=== PATIENT | male | born 1970 | race Caucasian/White ===

== ENCOUNTER 2018-01-10 01:51 | Emergency (ER) | payer BC, OTHER ==
[~2018-01-10] VITALS: Ht 160 cm; Wt 100.0 kg
[2018-01-10 01:59] VITALS: BP 165/117; PULSE 89; RESP 18; TEMP 98.6; O2SAT 99
--- NOTE | 2018-01-10 02:13 | PD ---
HPI Chief Complaint: Alcohol/Drug Intoxication Time Seen by Provider: 02:08 Travel History International Travel<30 days: No Contact w/Intl Traveler<30days: No Traveled to known affect area: No History of Present Illness HPI 47-year-old white male presents emergency department under [place] act by PD. Patient had been pulled over for a DUI. During [facility] the [facility] the patient had made suicidal statements. He had stated that he had thought about killing himself. He had also stated that he might not kill himself today but may be in a few days. He also had stated maybe he would kill him himself as well as his family because he was embarrassed regarding his DUI.. The patient states that he truly is not suicidal or homicidal. He states that he was merely embarrassed and he is intoxicated. He denies any medical complaints. He admits to drinking alcohol earlier. He does dip and chew nicotine gum. He denies any drugs. PFSH Past Medical History Narrative Medical Anxiety, depression, GERD, gout Hx Anticoagulant Therapy: No Cardiovascular Problems: Yes Chemotherapy: No Cerebrovascular Accident: No Diabetes: No Respiratory: No Tetanus Vaccination: < 5 Years ?: Not Past Surgical History Narrative Surgical Left knee arthroscopy, dental extraction Hysterectomy: No Social History Alcohol Use: Yes Tobacco Use: Yes Substance Use: No Allergies-Medications (Allergen,Severity, Reaction): Coded Allergies: No Known Allergies (Unverified , 01/10/18) Reported Meds & Prescriptions Reported Meds & Active Scripts Active Reported Nexium (Esomeprazole DR) 40 Mg Capdr 40 Mg PO DAILY Allopurinol 300 Mg Tab 300 Mg PO DAILY Wellbutrin Xl 24 HR (Bupropion HCl) 300 Mg Tab 300 Mg PO DAILY Review of Systems General / Constitutional: No: Fever Eyes: No: Visual changes HENT: No: Headaches Cardiovascular: No: Chest Pain or Discomfort Respiratory: No: Shortness of Breath Gastrointestinal: No: Abdominal Pain Genitourinary: No: Dysuria Musculoskeletal: No: Pain Skin: No Rash Neurologic: No: Weakness Psychiatric: Positive: Depression, Suicidal Ideations, Mood Disorder, Substance Abuse, Homicidal Ideation, No: Anxiety, Disorder of Thought Endocrine: No: Polydipsia Hematologic/Lymphatic: No: Easy Bruising Physical Exam Narrative GENERAL: Well-nourished, well-developed patient. Appears intoxicated. SKIN: Warm and dry. HEAD: Normocephalic and atraumatic. EYES: No scleral icterus. No injection or drainage. ENT: No nasal drainage noted. Mucous membranes pink. Airway patent. NECK: Supple, trachea midline. Moves head freely without obvious discomfort. CARDIOVASCULAR: Regular rate and rhythm without murmurs, gallops, or rubs. RESPIRATORY: Breath sounds equal bilaterally. No accessory muscle use. GASTROINTESTINAL: Abdomen soft, non-tender, nondistended. EXTREMITIES: No cyanosis or edema. BACK: Nontender without obvious deformity. No CVA tenderness. NEURO: Patient is alert and oriented. no sensorimotor deficits. Nonfocal. Somewhat slurred speech. PSYCH: No delusions. No auditory or visual hallucinations. Data Data Last Documented VS Vital Signs Date Time Temp Pulse Resp B/P (MAP) Pulse Ox O2 Delivery O2 Flow Rate FiO2 01/10/18 01:59 98.6 89 18 165/117 (133) 99 Orders Orders Complete Blood Count With Diff (01/10/18 02:09) Comprehensive Metabolic Panel (01/10/18 02:09) Thyroid Stimulating Hormone (01/10/18 02:09) Psych Screen (01/10/18 02:09) Drug Screen, Random Urine (01/10/18 02:09) Alcohol (Ethanol) (01/10/18 02:09) Diet Regular Basic (01/10/18 Breakfast) Labs Laboratory Tests Test 01/10/18 02:30 White Blood Count 8.0 TH/MM3 Red Blood Count 5.35 MIL/MM3 Hemoglobin 18.1 GM/DL Hematocrit 51.0 % Mean Corpuscular Volume 95.5 FL Mean Corpuscular Hemoglobin 33.9 PG Mean Corpuscular Hemoglobin Concent 35.5 % Red Cell Distribution Width 13.7 % Platelet Count 256 TH/MM3 Mean Platelet Volume 7.9 FL Neutrophils (%) (Auto) 49.2 % Lymphocytes (%) (Auto) 41.1 % Monocytes (%) (Auto) 7.1 % Eosinophils (%) (Auto) 1.3 % Basophils (%) (Auto) 1.3 % Neutrophils # (Auto) 3.9 TH/MM3 Lymphocytes # (Auto) 3.3 TH/MM3 Monocytes # (Auto) 0.6 TH/MM3 Eosinophils # (Auto) 0.1 TH/MM3 Basophils # (Auto) 0.1 TH/MM3 CBC Comment DIFF FINAL Differential Comment Blood Urea Nitrogen 8 MG/DL Creatinine 0.93 MG/DL Random Glucose 103 MG/DL Total Protein 8.2 GM/DL Albumin 4.4 GM/DL Calcium Level 8.2 MG/DL Alkaline Phosphatase 82 U/L Aspartate Amino Transf (AST/SGOT) 98 U/L Alanine Aminotransferase (ALT/SGPT) 145 U/L Total Bilirubin 0.5 MG/DL Sodium Level 144 MEQ/L Potassium Level 3.6 MEQ/L Chloride Level 108 MEQ/L Carbon Dioxide Level 21.9 MEQ/L Anion Gap 14 MEQ/L Estimat Glomerular Filtration Rate 87 ML/MIN Thyroid Stimulating Hormone 3rd Gen 1.140 uIU/ML Urine Opiates Screen NEG Urine Barbiturates Screen NEG Urine Amphetamines Screen NEG Urine Benzodiazepines Screen NEG Urine Cocaine Screen NEG Urine Cannabinoids Screen NEG Ethyl Alcohol Level 282 MG/DL MDM Medical Decision Making Medical Screen Exam Complete: Yes Emergency Medical Condition: Yes Medical Record Reviewed: Yes Interpretation(s) Laboratory Tests Test 01/10/18 02:30 White Blood Count 8.0 TH/MM3 Red Blood Count 5.35 MIL/MM3 Hemoglobin 18.1 GM/DL Hematocrit 51.0 % Mean Corpuscular Volume 95.5 FL Mean Corpuscular Hemoglobin 33.9 PG Mean Corpuscular Hemoglobin Concent 35.5 % Red Cell Distribution Width 13.7 % Platelet Count 256 TH/MM3 Mean Platelet Volume 7.9 FL Neutrophils (%) (Auto) 49.2 % Lymphocytes (%) (Auto) 41.1 % Monocytes (%) (Auto) 7.1 % Eosinophils (%) (Auto) 1.3 % Basophils (%) (Auto) 1.3 % Neutrophils # (Auto) 3.9 TH/MM3 Lymphocytes # (Auto) 3.3 TH/MM3 Monocytes # (Auto) 0.6 TH/MM3 Eosinophils # (Auto) 0.1 TH/MM3 Basophils # (Auto) 0.1 TH/MM3 CBC Comment DIFF FINAL Differential Comment Blood Urea Nitrogen 8 MG/DL Creatinine 0.93 MG/DL Random Glucose 103 MG/DL Total Protein 8.2 GM/DL Albumin 4.4 GM/DL Calcium Level 8.2 MG/DL Alkaline Phosphatase 82 U/L Aspartate Amino Transf (AST/SGOT) 98 U/L Alanine Aminotransferase (ALT/SGPT) 145 U/L Total Bilirubin 0.5 MG/DL Sodium Level 144 MEQ/L Potassium Level 3.6 MEQ/L Chloride Level 108 MEQ/L Carbon Dioxide Level 21.9 MEQ/L Anion Gap 14 MEQ/L Estimat Glomerular Filtration Rate 87 ML/MIN Thyroid Stimulating Hormone 3rd Gen 1.140 uIU/ML Urine Opiates Screen NEG Urine Barbiturates Screen NEG Urine Amphetamines Screen NEG Urine Benzodiazepines Screen NEG Urine Cocaine Screen NEG Urine Cannabinoids Screen NEG Ethyl Alcohol Level 282 MG/DL Differential Diagnosis MDM: High Differential diagnoses: Schizophrenia, schizoaffective disorder, bipolar, anxiety, depression, adjustment reaction, mood disorder NOS, ODD, depressive disorder NOS, psychosis NOS, substance induced mood disorder, infection, electrolyte abnormality, malingering. Narrative Course Mental health screening discussed with the patient. Psychiatric screen ordered. The patient has been medically cleared. This medical clearance for psychiatric admission Diagnosis Primary Impression: Medical clearance for psychiatric admission Condition: Stable Jerel Beach Jan 10, 2018 02:13
[2018-01-10] MEDS ORDERED: WELLTAB39 PO (02:46)
[2018-01-10] MEDS ORDERED: ALLO300T2 PO (02:46)
[2018-01-10] MEDS ORDERED: NEXI40CA PO (02:46)
[2018-01-10 03:06] LABS: AUTOMATED NEUTROPHIL # 3.9 TH/MM3 (1.8-7.7); BASOPHIL # 0.1 TH/MM3 (0-0.2); BASOPHIL % 1.3 % (0.0-2.0); EOSINOPHIL # 0.1 TH/MM3 (0-0.4); EOSINOPHIL % 1.3 % (0.0-4.0); HEMOGLOBIN 18.1 GM/DL (13.0-17.0); LYMPH % 41.1 % (9.0-44.0); LYMPHOCYTE # 3.3 TH/MM3 (1.0-4.8); MEAN CELL VOLUME 95.5 FL (80.0-100.0); MEAN CORPUSCULAR HEMOGLOBIN 33.9 PG (27.0-34.0); MEAN CORPUSCULAR HGB CONC 35.5 % (32.0-36.0); MEAN PLATELET VOLUME 7.9 FL (7.0-11.0); MONO % 7.1 % (0.0-8.0); MONOCYTE # 0.6 TH/MM3 (0-0.9); NEUT % 49.2 % (16.0-70.0); PLATELET COUNT 256 TH/MM3 (150-450); RED BLOOD COUNT 5.35 MIL/MM3 (4.50-5.90); RED CELL DISTRIBUTION WIDTH 13.7 % (11.6-17.2)
[2018-01-10 03:17] LABS: ALBUMIN 4.4 GM/DL (3.4-5.0); ALT (GPT) 145 U/L (12-78); AST (GOT) 98 U/L (15-37); BICARBONATE 21.9 MEQ/L (21.0-32.0); BLOOD UREA NITROGEN 8 MG/DL (7-18); CALCIUM 8.2 MG/DL (8.5-10.1); CHLORIDE 108 MEQ/L (98-107); CREATININE 0.93 MG/DL (0.60-1.30); GLOMERULAR FILTRATION RATE 87 ML/MIN (>89); GLUCOSE,RANDOM 103 MG/DL (74-106); SODIUM (NA) 144 MEQ/L (136-145)
[2018-01-10 03:27] LABS: ALKALINE PHOSPHATASE 82 U/L (45-117); TOTAL BILIRUBIN ADULT 0.5 MG/DL (0.2-1.0); TOTAL PROTEIN 8.2 GM/DL (6.4-8.2)
[2018-01-10 04:33] VITALS: BP 136/72; PULSE 85; RESP 18; O2SAT 98
[2018-01-10 10:04] VITALS: BP 161/105; PULSE 85; RESP 18; O2SAT 100; O2SAT 18
--- NOTE | 2018-01-10 11:02 | PD ---
Physical Exam Date Seen by Provider: Jan 10, 2018 Time Seen by Provider: 11:00 Narrative 47-year-old male previously medically clear for psychiatric evaluation under the Moses act, has been seen by psychiatric staff, and deemed to be psychiatrically stable for discharge at this time. Patient remains medically stable for discharge. Patient is recommended to follow-up with T[facility] Gamboa for his alcohol use. Data Data Last Documented VS Vital Signs Date Time Temp Pulse Resp B/P (MAP) Pulse Ox O2 Delivery O2 Flow Rate FiO2 01/10/18 10:52 01/10/18 10:04 85 18 100 Room Air 01/10/18 01:59 98.6 Orders Orders Complete Blood Count With Diff (01/10/18 02:09) Comprehensive Metabolic Panel (01/10/18 02:09) Thyroid Stimulating Hormone (01/10/18 02:09) Psych Screen (01/10/18 02:09) Drug Screen, Random Urine (01/10/18 02:09) Alcohol (Ethanol) (01/10/18 02:09) Diet Regular Basic (01/10/18 Breakfast) Diet Regular Basic (01/10/18 Lunch) Labs Laboratory Tests Test 01/10/18 02:30 White Blood Count 8.0 TH/MM3 Red Blood Count 5.35 MIL/MM3 Hemoglobin 18.1 GM/DL Hematocrit 51.0 % Mean Corpuscular Volume 95.5 FL Mean Corpuscular Hemoglobin 33.9 PG Mean Corpuscular Hemoglobin Concent 35.5 % Red Cell Distribution Width 13.7 % Platelet Count 256 TH/MM3 Mean Platelet Volume 7.9 FL Neutrophils (%) (Auto) 49.2 % Lymphocytes (%) (Auto) 41.1 % Monocytes (%) (Auto) 7.1 % Eosinophils (%) (Auto) 1.3 % Basophils (%) (Auto) 1.3 % Neutrophils # (Auto) 3.9 TH/MM3 Lymphocytes # (Auto) 3.3 TH/MM3 Monocytes # (Auto) 0.6 TH/MM3 Eosinophils # (Auto) 0.1 TH/MM3 Basophils # (Auto) 0.1 TH/MM3 CBC Comment DIFF FINAL Differential Comment Blood Urea Nitrogen 8 MG/DL Creatinine 0.93 MG/DL Random Glucose 103 MG/DL Total Protein 8.2 GM/DL Albumin 4.4 GM/DL Calcium Level 8.2 MG/DL Alkaline Phosphatase 82 U/L Aspartate Amino Transf (AST/SGOT) 98 U/L Alanine Aminotransferase (ALT/SGPT) 145 U/L Total Bilirubin 0.5 MG/DL Sodium Level 144 MEQ/L Potassium Level 3.6 MEQ/L Chloride Level 108 MEQ/L Carbon Dioxide Level 21.9 MEQ/L Anion Gap 14 MEQ/L Estimat Glomerular Filtration Rate 87 ML/MIN Thyroid Stimulating Hormone 3rd Gen 1.140 uIU/ML Urine Opiates Screen NEG Urine Barbiturates Screen NEG Urine Amphetamines Screen NEG Urine Benzodiazepines Screen NEG Urine Cocaine Screen NEG Urine Cannabinoids Screen NEG Ethyl Alcohol Level 282 MG/DL [facility] Medical Record Reviewed: Yes Supervised Visit with JOAQUIN: Yes Narrative Course 47-year-old male previously medically clear for psychiatric evaluation under the [place] act, has been seen by psychiatric staff, and deemed to be psychiatrically stable for discharge at this time. Patient remains medically stable for discharge. Patient is recommended to follow-up with Tomas Gamboa for his alcohol use. Diagnosis Primary Impression: Medical clearance for psychiatric admission Additional Impression: Alcohol abuse Referrals: [facility] Patient Instructions: General Instructions Med/Other Pt SpecificInfo: No Meds Exist/No RX given Disposition: 01 DISCHARGE HOME Condition: Stable Tal Harris Jan 10, 2018 11:02
--- NOTE | 2018-01-10 11:15 | PD ---
History of Present Illness Chief Complaint: Alcohol/Drug Intoxication Time Seen by Provider: 10:40 Travel History International Travel<30 Days: No Contact w/Intl Traveler<30days: No Known affected area: No Legal Status Legal Status: Moses Act Moses Act Signed By: DELL ALAMO [facility] OFFICE Moses Act Comment: OFFICER Dick ROMAN 156 History of Present Illness: History of Present Illness HPI 47-year-old white, male with history of alcohol use disorder who presents to emergency department under [place] act by PD. Patient had been at a baseball tournament with his children. He had consumed alcohol and decided to drive back to [place] where he lives and was pulled over for a DUI. The Moses act report alleges that while he was being process at the group home he made multiple statements about killing himself. The report also alleges that he stated that he did not know if he would just kill himself or kill his children and himself due to the fact that he does not want them to know that he has been arrested. He did not make any attempt to harm himself. The patient's blood alcohol level on arrival to the ED was 282. Patient was monitored in secure environment and he presented no behavioral concerns and no suicidality. EMR is reviewed. No previous contact with [facility]. Patient is seen in [facility]. He is clinically sober. No evidence of any withdrawal symptoms. He is engaging and cooperative. His speech is clear and logical. There is no significant objective clinical symptoms of depression or anxiety. No evidence of unstable mental illness. He denies any suicidal or homicidal ideation, intent or plan. He states" I was drunk and got pulled over. I made a sarcastic statement and they took me literally. I feel stupid now." Patient admits that he did make a statement that he would rather kill himself than for his children to find out that he was arrested. He denies that this was an actual suicidal statement. The patient has no previous suicidal attempts. No previous psychiatric history. The remainder of the psychiatric review of systems is negative. PFSH Past Medical History Hx Anticoagulant Therapy: No Depression: Yes Cardiovascular Problems: Yes Chemotherapy: No Cerebrovascular Accident: No Diabetes: No Patient Takes Glucophage: No Diminished Hearing: No Hypertension: Yes Respiratory: No Tetanus Vaccination: < 5 Years ?: Not Past Surgical History Hysterectomy: No Psychiatric History Psychiatric History Hx Psychiatric Treatment: No previous psychiatric history. No history of suicide attempt. 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 This in [place]. Has 2 boys ages 16-1/2 and 13 years old. He shares custody of these children. He works for [employer]. Hx Alcohol Use: Yes (Long history of alcohol abuse. Has had extended periods of sobriety in the past. He relapsed approximately 2-1/2 months ago. He has used AA) Hx Tobacco Use: Yes Hx Substance Use: Yes Substance Use Type: Alcohol Other Substances Used: ETOH AA IN PAST Hx of Substance Use Treatment: Yes Family Psychiatric History Negative Allergies-Medications (Allergen,Severity, Reaction): Coded Allergies: No Known Allergies (Unverified , 01/10/18) Reported Meds & Prescriptions Reported Meds & Active Scripts Active Reported Nexium (Esomeprazole DR) 40 Mg Capdr 40 Mg PO DAILY Allopurinol 300 Mg Tab 300 Mg PO DAILY Wellbutrin Xl 24 HR (Bupropion HCl) 300 Mg Tab 300 Mg PO DAILY Review of Systems Psychiatric: COMPLAINS OF: Anxiety, Confusion, Mood changes, Depression, Hallucinations, Agitation, Suicidal Ideation, Homicidal Ideation, Delusions Except as stated in HPI: all other systems reviewed are Neg Mental Status Examination Appearance: Disheveled (In paper scrubs) Consciousness: Alert Motor Activity: Normal gait Speech: Unremarkable Language: Adequate Fund of Knowledge: Adequate Attention and Concentration: Adequate Memory: Unremarkable Mood: Appropriate Affect: Appropriate Thought Process & Associations: Intact, Logical, Goal directed Thought Content: Appropriate Hallucination Type: None Delusion Type: None Suicidal Ideation: No Suicidal Plan: No Suicidal Intention: No Homicidal Ideation: No Homicidal Plan: No Homicidal Intention: No Insight: Adequate Judgment: Adequate [facility] Medical Decision Making Medical Record Reviewed: Yes Assessment/Plan 47-year-old male with no previous psychiatric history, history of alcohol use disorder who in context of acute alcohol intoxication was pulled over for a DUI. While being processed by the police he it is alleged that he made statements that he might as well just kill himself due to his embarrassment. The patient wants clinically sober denies that he had any intention of wanting to harm himself or harming anyone else. He states that it was a stupid and sarcastic statement and that he was taken seriously. The patient is future oriented and states " he has a lot of stuff that he needs to do" and "that he needs to be a better father for his children". The patient acknowledges that his alcohol intoxication led to his statements. He has utilized to AA program before and feels that he needs to go back to that program again. I find no evidence of any unstable mental illness as defined under the Moses act law. The patient is future oriented. I will lift the Moses act. I have counseled the patient on abstinence and importance of following up with AA. BA is lifted. Psychiatrically clear for discharge from the ED. Orders Orders Complete Blood Count With Diff (01/10/18 02:09) Comprehensive Metabolic Panel (01/10/18 02:09) Thyroid Stimulating Hormone (01/10/18 02:09) Psych Screen (01/10/18 02:09) Drug Screen, Random Urine (01/10/18 02:09) Alcohol (Ethanol) (01/10/18 02:09) Diet Regular Basic (01/10/18 Breakfast) Diet Regular Basic (01/10/18 Lunch) Ed Discharge Order (01/10/18 11:03) Results Vital Signs Date Time Temp Pulse Resp B/P (MAP) Pulse Ox O2 Delivery O2 Flow Rate FiO2 01/10/18 10:52 01/10/18 10:04 85 18 161/105 (123) 100 Room Air 01/10/18 04:33 85 18 136/72 (93) 98 Room Air 01/10/18 01:59 98.6 89 18 165/117 (133) 99 Laboratory Tests Test 01/10/18 02:30 White Blood Count 8.0 Red Blood Count 5.35 Hemoglobin 18.1 Hematocrit 51.0 Mean Corpuscular Volume 95.5 Mean Corpuscular Hemoglobin 33.9 Mean Corpuscular Hemoglobin Concent 35.5 Red Cell Distribution Width 13.7 Platelet Count 256 Mean Platelet Volume 7.9 Neutrophils (%) (Auto) 49.2 Lymphocytes (%) (Auto) 41.1 Monocytes (%) (Auto) 7.1 Eosinophils (%) (Auto) 1.3 Basophils (%) (Auto) 1.3 Neutrophils # (Auto) 3.9 Lymphocytes # (Auto) 3.3 Monocytes # (Auto) 0.6 Eosinophils # (Auto) 0.1 Basophils # (Auto) 0.1 CBC Comment DIFF FINAL Differential Comment Blood Urea Nitrogen 8 Creatinine 0.93 Random Glucose 103 Total Protein 8.2 Albumin 4.4 Calcium Level 8.2 Alkaline Phosphatase 82 Aspartate Amino Transf (AST/SGOT) 98 Alanine Aminotransferase (ALT/SGPT) 145 Total Bilirubin 0.5 Sodium Level 144 Potassium Level 3.6 Chloride Level 108 Carbon Dioxide Level 21.9 Anion Gap 14 Estimat Glomerular Filtration Rate 87 Thyroid Stimulating Hormone 3rd Gen 1.140 Urine Opiates Screen NEG Urine Barbiturates Screen NEG Urine Amphetamines Screen NEG Urine Benzodiazepines Screen NEG Urine Cocaine Screen NEG Urine Cannabinoids Screen NEG Ethyl Alcohol Level 282 Diagnosis Primary Impression: alcohol abuse with intoxication Psychiatrically Cleared: Yes Referrals: [facility] Patient Instructions: General Instructions Med/ Other Pt Specific Info: No Meds Exist/No RX given Disposition: 01 DISCHARGE HOME Condition: Stable SchultzChristine Jan 10, 2018 11:15
== END 2018-01-10 11:16 | disposition home or self-care (01) ==
LOC: NEPJ 01:51
DX: F10.129 Alcohol abuse with intoxication, unspecified (principal); F32.9 Major depressive disorder, single episode, unspecified; K21.9 Gastro-esophageal reflux disease without esophagitis; M10.9 Gout, unspecified; Y90.8 Blood alcohol level of 240 mg/100 ml or more; Z79.899 Other long term (current) drug therapy
CPT/HCPCS: 80053; 80307; 84443; 85025; 99284